=== PATIENT | female | born 1980 | race Caucasian/White ===

== ENCOUNTER 2021-12-15 04:48 | Emergency (ER) | payer OTHER ==
[~2021-12-15] VITALS: Ht 162.6 cm; Wt 64.9 kg
[~2021-12-15 04:48] MED LIST: AMOXIL 875 MG875 M1 PO; BACTRIM DS TAB1 EACH PO; BUPROPION; HYDROCODONE-APA1 TA1 PO; KEFLEX500 MG PO; NORCO 5-325 TA1 EACH PO; ULTRAM 50MG TAB50 MG PO; VIGAMOX3 M1 OP
[2021-12-15] MEDS ORDERED: CLEOCIN HCL300 MG PO (05:45)
[2021-12-15] MEDS ORDERED: HYDROCODON-ACE1 EAC8 PO (05:45)
[2021-12-15 06:00] VITALS: BP 118/69
== END 2021-12-15 06:00 | disposition home or self-care (01) ==
LOC: M.ERS 04:48
DX: K04.7 Periapical abscess without sinus (principal); F17.210 Nicotine dependence, cigarettes, uncomplicated; Z90.49 Acquired absence of other specified parts of digestive tract; Z88.5 Allergy status to narcotic agent